=== PATIENT | female | born 1955 | race Caucasian/White ===

== ENCOUNTER → 2023-05-22 08:29 | Outpatient (CLI) | payer MEDICARE, OTHER, SELFPAY ==
--- NOTE | ~2023-05-22 | CT_ITS ---
EXAMINATION: CT abdomen pelvis wo/w con DATE: 05/22/2023 09:25 INDICATION: Renal mass TECHNIQUE: Computed tomography (CT) of the abdomen and pelvis was performed without and with 100 mL O mnipaque-350 intravenous contrast. Automated exposure control and iterative reconstruction technique were employed. The dose-length product was 823.57 mGy-cm. COMPARISON: None FINDINGS: Mild bibasilar atelectasis. Heart size is normal. No pericardial or pleural effusion. Calcified epiph renic lymph node along with multiple splenic and a few hepatic calcifications all consistent with old granulomatous disease. Cholecystectomy clips the gallbladder fossa. Fatty atrophy of the pancreas mo st prominent at the uncinate processes. There are couple subcentimeter low-attenuation lesions at the left kidney, one measuring approximately 5 mm demonstrates macroscopic fat attenuation is preserved on the sagittal and coronal sequences consistent with an angiomyolipoma. The second also measuring ap proximately 5 mm seen on series 5, image 29 is indistinguishable from the surrounding renal parenchym a on the noncontrast imaging. This appears likely hypoenhancing on the post contrast imaging. Specifi city is limited by the small size of the lesion. Right kidney is normal. There is moderate colonic di verticulosis with a sigmoid predominance. There is no adjacent inflammatory change to suggest divert iculitis. No bowel obstruction. No inflammatory stranding surrounding a short appendix versus appendi ceal stump post prior appendectomy. Multiple calcified degenerated uterine fibroids. Bladder is unrem arkable. Bilateral simple appearing adnexal cysts the larger on the right measuring 2.2 cm. No free i ntraperitoneal gas or fluid. No pathologically enlarged abdominal or pelvic lymphadenopathy. Mild to moderate lumbar and lower thoracic spondylosis. IMPRESSION: 1. A couple 5 mm lesions in the upper pole the left kidney, one with macroscopic fat attenuation cons istent with an angiomyolipoma, the second of soft tissue density with suggestion of enhancement raisi ng concern for renal cell carcinoma however specificity is decreased by the small size of the lesion. Correlate with any prior outside imaging and could consider further evaluation with pre and postcont rast MRI. 2. Diverticulosis. Reviewed, dictated and finalized at location [facility]. IMPRESSION: 1. A couple 5 mm lesions in the upper pole the left kidney, one with macroscopi c fat attenuation consistent with an angiomyolipoma, the second of soft tissue density with suggestion of enhancement raising concern for renal cell carcinoma however specificity is decreased by the small size of the lesion. Correlate wi th any prior outside imaging and could consider further evaluation with pre and postcontrast MRI. 2. Diverticulosis.
[2023-05-22 09:10] LABS: Estimated Glomerular Filt Rate > 60
== END ==
PROVIDERS: PCP Urology; Visit Provider Urology
DX: N28.89 Other specified disorders of kidney and ureter (principal); K57.30 Diverticulosis of large intestine without perforation or abscess without bleeding
CPT/HCPCS: 74178; Q9967

== ENCOUNTER 2023-08-11 01:18 | Day surgery (SDC) | payer MEDICARE, OTHER, SELFPAY ==
[2023-07-31 12:44] VITALS: BMI 31.5
[2023-08-11 07:17] VITALS: BP 143/65; PULSE 66; RESP 18; TEMP 36.1; O2SAT 98
--- NOTE | 2023-08-11 07:23 | PM.HPGS ---
History of Present Illness History of Present Illness Consent: Risks, benefits, and alternatives have been discussed and questions answered. Patient agrees to proceed with procedure. Chief complaint: neoplasm screening Narrative: Gerri Souza is a 67 year old female Presents for screening colonoscopy. Patient's current weight appetite and bowel movements are normal. Patient was found to have adenomatous colon polyp at the time of previous colonoscopy in 2018. Patient reports no blood in her stools. She denies abdominal pain. Review of Systems Review of Systems: Review of systems noncontributory. [facility] Past Medical History Medical History (Updated 08/11/23 @ 07:24 by Jorge Richey MD) Anti-TPO antibodies present Anxiety Body mass index (BMI) 23 or greater (02/16/19) Cervical dystonia Diabetes mellitus Dystonia Daniella's thyroiditis Kidney stones Nontoxic multinodular goiter Osteoarthritis Prediabetes Screening for colon cancer Spinal cord neoplasm Surgical History Surgical History History of knee surgery right knee Hx of appendectomy Hx of cholecystectomy Previous back surgery tumor on spine Previous section x2 Family History Family History Mother Family history of cataracts Family history of lung disease Sibling Hypertension Family history of sleep apnea Father Cerebrovascular accident Family history of diabetes mellitus in first degree relative Family history of congestive heart failure Family history of heart disease in male family member before age 55 Social History Social History Smoking status: Never smoker Second hand tobacco smoke exposure: No Alcohol intake: current Alcohol use details: socially Substance use: never Lack of Transportation: No Lack of Food: Never True Current Housing: I Have Housing Concerned About Future Housing: No Difficulty Paying Gas/Electric Bills: No Difficulty Paying for Meds: No Currently Unemployed: No Difficulty w/ Childcare or Family Care: No Living arrangements: with family Occupation/Education: retired Gender identity (if verbalized by the patient): Female Sexual Orientation (if Verbalized by the Patient): Straight or Heterosexual Agree to blood products: Yes Meds Home Medications and Allergies Home Medications Medication Instructions Recorded Confirmed Type ascorbic acid (vitamin C) 500 mg 500 mg PO DAILY 06/25/22 08/11/23 History capsule bifidobacterium bifidum and longum 1 cap PO DAILY 06/25/22 07/31/23 History 460 mg (9-1 billion cell) capsule cetirizine 10 mg tablet (Zyrtec) 10 mg PO DAILY PRN Allergy Symptoms 06/25/22 07/31/23 History cholecalciferol (vitamin D3) 25 25 mcg PO DAILY 06/25/22 07/31/23 History mcg (1,000 unit) tablet magnesium 200 mg tablet 400 mg PO DAILY 06/25/22 07/31/23 History multivitamin 1 tablet PO DAILY 06/25/22 07/31/23 History omega-3 fatty acids-fish oil 300 1 cap PO DAILY 06/25/22 08/11/23 History mg-500 mg capsule (Fish Oil) lancets (Accu-Chek Softclix #100 ea 09/04/22 06/24/23 Rx Lancets) blood sugar diagnostic (Accu-Chek #100 ea 10/24/22 06/24/23 Rx Elsa Plus test strips) metformin 500 mg tablet,extended 1,000 mg PO DAILY #180 tabs 03/24/23 07/31/23 Rx release 24 hr carbidopa 25 mg-levodopa 100 mg See Rx Instructions .Route 03/26/23 07/31/23 Rx tablet .COMPLEX #270 tabs levothyroxine 50 mcg tablet 50 mcg PO DAILY 90 days #90 tabs 06/24/23 07/31/23 Rx clonazepam 2 mg tablet 2 mg PO BID #60 tabs 06/29/23 07/31/23 Rx meloxicam 15 mg tablet See Rx Instructions .Route 07/27/23 07/31/23 Rx .COMPLEX #90 tabs trazodone 50 mg tablet 50 mg PO QHS #90 tabs 08/10/23 08/11/23 Rx Allergies Allergy/AdvReac Type Severity Reaction Status Date / Time ryanlo
[2023-08-11] MEDS: LACTATED RINGERS 1,000 ML 150 ML IV CONT (07:27)
--- NOTE | 2023-08-11 08:02 | WPDANESEPPF ---
Anes - Initial Pre Proc Eval Procedure: Operation Date: 08/11/23 08:30 Proposed Procedures p Screening Colonoscopy - Jorge Richey MD Date/Time: 08/11/23 08:02 Surgeon: Jorge Richey MD Pre Op Diagnosis: neoplasm screening Patient Data Age: 67 Gender: F Height: 1.52 m Weight: 69.9 kg Last Vital Signs Temp 97 F L 08/11/23 07:17 Pulse 66 08/11/23 07:17 Resp 18 08/11/23 07:17 BP 143/65 H 08/11/23 07:17 Pulse Ox 98 08/11/23 07:17 O2 Del Method Room Air 08/11/23 07:17 Allergies Allergy/AdvReac Type Severity Reaction Status Date / Time diclofenac Allergy Unknown Unknown Verified 08/11/23 07:14 hydrocodone Allergy Unknown Rash Verified 08/11/23 07:14 Penicillins Allergy Unknown Unknown Verified 08/11/23 07:14 phenobarbital Allergy Unknown Unknown Verified 08/11/23 07:14 Home Medications Medication Instructions Recorded Confirmed Type ascorbic acid (vitamin C) 500 mg 500 mg PO DAILY 06/25/22 08/11/23 History capsule bifidobacterium bifidum and longum 1 cap PO DAILY 06/25/22 07/31/23 History 460 mg (9-1 billion cell) capsule cetirizine 10 mg tablet (Zyrtec) 10 mg PO DAILY PRN Allergy Symptoms 06/25/22 07/31/23 History cholecalciferol (vitamin D3) 25 25 mcg PO DAILY 06/25/22 07/31/23 History mcg (1,000 unit) tablet magnesium 200 mg tablet 400 mg PO DAILY 06/25/22 07/31/23 History multivitamin 1 tablet PO DAILY 06/25/22 07/31/23 History omega-3 fatty acids-fish oil 300 1 cap PO DAILY 06/25/22 08/11/23 History mg-500 mg capsule (Fish Oil) lancets (Accu-Chek Softclix #100 ea 09/04/22 06/24/23 Rx Lancets) blood sugar diagnostic (Accu-Chek #100 ea 10/24/22 06/24/23 Rx Elsa Plus test strips) metformin 500 mg tablet,extended 1,000 mg PO DAILY #180 tabs 06/06/23 10/13/23 Rx release 24 hr carbidopa 25 mg-levodopa 100 mg See Rx Instructions .Route 03/26/23 07/31/23 Rx tablet .COMPLEX #270 tabs levothyroxine 50 mcg tablet 50 mcg PO DAILY 90 days #90 tabs 06/24/23 07/31/23 Rx clonazepam 2 mg tablet 2 mg PO BID #60 tabs 06/29/23 07/31/23 Rx meloxicam 15 mg tablet See Rx Instructions .Route 07/27/23 07/31/23 Rx .COMPLEX #90 tabs trazodone 50 mg tablet 50 mg PO QHS #90 tabs 08/10/23 08/11/23 Rx Patient hx anesthesia problems: none Family hx anesthesia problems: none Results Review: All pre-operative results and documents have been reviewed as part of the pre-operative evaluation. 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 Previous section x2 Family History Family History Mother Family history of cataracts Family history of lung disease Sibling Hypertension Family history of sleep apnea Father Cerebrovascular accident Family history of diabetes mellitus in first degree relative Family history of congestive heart failure Family history of heart disease in male family member before age 55 Social History Social History Smoking status: Never smoker Second hand tobacco smoke exposure: No Alcohol intake: current Alcohol use details: socially Substance use: never Lack of Transportation: No Lack of Food: Never True Current Housing: I Have Housing Concerned About Future Housing: No Difficulty Paying Gas/Electric Bills: No Difficulty Paying for Meds: No Currently Unemployed: No
[2023-08-11 08:15] LABS: Glucose Point of Care 99 mg/dl (65-105)
[2023-08-11 08:39] VITALS: BP 105/63; PULSE 64; RESP 22; O2SAT 96
[2023-08-11 08:49] VITALS: BP 110/76; PULSE 77; RESP 22; O2SAT 100
[2023-08-11 08:59] VITALS: BP 163/82; PULSE 81; RESP 24; O2SAT 99
== END 2023-08-11 09:06 | disposition home or self-care (01) ==
PROVIDERS: PCP Family Medicine; Visit Provider Internal Medicine Gastroenterology
PROC: 0DJD8ZZ Inspection of Lower Intestinal Tract, Via Natural or Artificial Opening Endoscopic (ICD-10-PCS; CPT 45378; principal; 2023-08-11 08:30)
DX: Z12.11 Encounter for screening for malignant neoplasm of colon (principal); K57.30 Diverticulosis of large intestine without perforation or abscess without bleeding; Z86.010 Personal history of colon polyps; F41.9 Anxiety disorder, unspecified; E11.9 Type 2 diabetes mellitus without complications; E06.3 Autoimmune thyroiditis; E66.9 Obesity, unspecified; Z68.30 Body mass index [BMI] 30.0-30.9, adult; Z79.84 Long term (current) use of oral hypoglycemic drugs; Z86.018 Personal history of other benign neoplasm
CPT/HCPCS: G0105; 82948; J2704; J7120

== ENCOUNTER 2024-01-21 10:20 | Outpatient (CLI) | payer MEDICARE, OTHER, SELFPAY ==
--- NOTE | ~2024-01-21 | MR_ITS ---
MRI of the abdomen: Clinical indication: Renal mass. Technique: Coronal SSFSE ARC, WATER:coronal LAVA-FLEX, Coronal 2D FIESTA FatSat, Axial SSFSE BH ARC, Axial 3D DualEcho BH, Axial SSFSE-IR, Axial DWI b=500, Axial 2D FIESTA FatSat, pre and dynamic postco ntrast Axial LAVA ARC, postcontrast Coronal In and Opposed phase LAVA FLEX . Following intravenous ad ministration of 14 cc MultiHance gadolinium, T1-weighted fat-sat imaging was performed in the axial a nd coronal planes. Findings: Gallbladder unremarkable. The common bile duct is dilated proximally to 10 mm, probably rel ated to prior cholecystectomy. No filling defects are seen within the CBD. No evidence of intrahepati c biliary ductal dilatation. The pancreatic duct is normal in size. Liver, spleen, pancreas, adrenals, kidneys appear normal. The aorta and the paraaortic regions appear normal. No suspicious postcontrast enhancement seen. Impression: No significant renal abnormality identified. Mild dilated common bile duct may related to prior cholecystectomy. Reviewed, dictated and finalized at [facility]. Impression: No significant renal abnormality identified. Mild dilated common bile duct may related to prior cholecystectomy.
== END 2024-01-21 10:21 | disposition home or self-care (01) ==
PROVIDERS: PCP Family Medicine; Visit Provider Urology
DX: N28.89 Other specified disorders of kidney and ureter (principal)
CPT/HCPCS: 74183; A9577

== ENCOUNTER 2025-03-22 11:15 | Outpatient (RCR) | payer MEDICARE, OTHER, SELFPAY ==
--- NOTE | 2025-01-24 16:04 | PTOPEVAL1 ---
Assessment and note entered by Kallie Ruth, PT Evaluation Information Assessment Status Evaluation Diagnosis right sided sciatica ICD-10 Condition Codes (PT) Pain in low back M54.50,Weakness R53.1 Other ICD-10 Condition Codes ( M74.604 Pain in right leg PT) Subjective Information Has been dealing with this about a year overall. Was at Chiropractor April to July and he used the activator. She was pleased with this services. Was doing pretty good keeping moving. Feels like doesn't have enough to keep her moving. Was better but wasn't totally gone by the end of that. States every once in a while will have pelvic pain. notes she would be out of alignment every couple of days. First thing in the morning, with dressing, and with bathing increases pain Water aerobics 3x weekly and stays active. Notices now when she goes to class and starting the exercises she has pain right gluteal and leg but by the end of session is feeling better. Reported Pain Level Pain Score 3: Self Report Assessment PT Clinical Summary Pt presents with right sided sciatica symptoms that have persisted approximately one year. she was seeing a Chiropractor between April and July and felt did well with this though the issue was never fully resolved. She also has a history of right knee meniscectomy which left her lacking full extension, has arthritis in joey knees and low back. Today she demonstrates (+) neural tension RLE, decreased flexibility RLE hip and quads, significant gluteal weakness joey, pelvic upslip which partially corrected with muscle energy technique. Appears these are effecting her piriformis muscle tone and causing pressure on the sciatic nerve with discomfort. Pt will benefit from physical therapy in order to address deficits , reduce pain, and educate patient on independent maintenance for half-way outcomes. Plan of Care Interventions Electrical Stimulation,Hot Pack/Cold Pack,Manual Therapy,Mechanical Traction,Neuro Re-education, Patient/Caregiver Education,Therapeutic Activities ,Therapeutic Exercise,Self-Care/Home Management, Ultrasound,Other Other Interventions Taping, bracing, IASTM PT Services Indicated Yes Treatment Frequency and 2x weekly x 16 weeks Duration These treatments will address the objective and functional deficits as defined above. The patient will be advanced safely and appropriately in order for the patient to progress towards his/her prior level of function. Additional exercises will be introduced and as well as a comprehensive home exercise program upon discharge, if needed, ?to ensure carryover of functional gains achieved in the clinic. This treatment plan has been reviewed and agreement upon by the patient.
--- NOTE | 2025-01-24 16:04 | OPREHPOC ---
Outpatient Therapy Plan of Care This is a Multidisciplinary Plan of Care that may contain components documented by all disciplines (PT, OT, and ST.) PT Problem 1 PT Problem #1 Knowledge Deficit PT Goal 1 Goal / Goal Update Pt will be independent in HEP Pt will verbalize understanding of diagnosis and prognosis Target Visit 8 PT Problem 2 PT Problem #2 Pain PT Goal 1 Goal / Goal Update Pt will report greatest pain level at 5/10 or less to improve ADLs and activities PT Goal 2 Goal / Goal Update Pt will report greatest pain level at 2/10 or less to improve ADLs and activities PT Problem 3 PT Problem #3 Impaired Strength PT Goal 1 Goal / Goal Update Pt will demonstrate BLE strength of 3+/5 in all tested planes for improved lumpbopelvic stability Target Visit 8 PT Goal 2 Goal / Goal Update Pt will demonstrate BLE strength of 4/5 in all tested planes for improved lumpbopelvic stability Target Visit 16 PT Problem 4 PT Problem #4 Impaired Flexibility PT Goal 1 Goal / Goal Update Pt will demonstrates mild piriformis flexibility deficit Target Visit 8
--- NOTE | 2025-02-20 16:53 | PTOPPROG ---
Assessment and note entered by Kallie Ruth, PT Evaluation Information Assessment Status Progress Diagnosis right sided sciatica ICD-10 Condition Codes (PT) Pain in low back M54.50,Weakness R53.1 Other ICD-10 Condition Codes ( M74.604 Pain in right leg PT) Subjective Information Reports has to sit to put on socks in the morning, stairs are still painful. showering is still painful Reports this morning had pain across the pelvis. Thursday was terrible, Thursday was good but didn' t ride the bike Sat or Thursday. Reports still has pain into right calf. Pt reports feeling maybe a little progress overall. Pt reports sometimes has achiness and not the sharp and intense as previously. Pt reports less instances of sharp pains but still has the achiness, less 10/10 moments Assessment PT Clinical Summary Gerri has attended therapy consistently 8 visits and is here for reevaluation. She is a highly active individual participating in recreational fitness consistently and caring for her granddaughter. Unfortunately she has made minimal progress with direction PT has been focused. She does show mild improvements in ROM, flexibility, and strength but nothing significant. Her pelvic alignment is also improved overall however has not had significant effect on her discomfort. Today we shifted to lumbar traction in hopes if there is discogenic or nerve impingement in the lumbar spine this will show improvement. Shifting focus to lumbar ROM, and continued strengthening with less focus on soft tissue management, pt may benefit from continued therapy to reduce discomfort. If new POC shows minimal or no improvement, pt may benefit from further imaging to assess possible reasonings for pain. Plan of Care Interventions Electrical Stimulation,Hot Pack/Cold Pack,Manual Therapy,Mechanical Traction,Neuro Re-education, Patient/Caregiver Education,Therapeutic Activities ,Therapeutic Exercise,Self-Care/Home Management, Ultrasound,Other Other Interventions Taping, bracing, IASTM PT Services Indicated Yes Treatment Frequency and 1-2x weekly x8 visits Duration These treatments will address the objective and functional deficits as defined above. The patient will be advanced safely and appropriately in order for the patient to progress towards his/her prior level of function. Additional exercises will be introduced and as well as a comprehensive home exercise program upon discharge, if needed, ?to ensure carryover of functional gains achieved in the clinic. This treatment plan has been reviewed and agreement upon by the patient.
--- NOTE | 2025-02-20 16:53 | OPREHPOC ---
Outpatient Therapy Plan of Care This is a Multidisciplinary Plan of Care that may contain components documented by all disciplines (PT, OT, and ST.) PT Problem 1 PT Problem #1 Knowledge Deficit PT Goal 1 Goal / Goal Update Pt will be independent in HEP - pt has had to modify HEP multiple times with therapist due to discomfort Pt will verbalize understanding of diagnosis and prognosis Target Visit 8 Progress Partially Met PT Problem 2 PT Problem #2 Pain PT Goal 1 Goal / Goal Update Pt will report greatest pain level at 5/10 or less to improve ADLs and activities - reports less instances of the 10/10 pain though continues to have high levels of pain at times Progress Not Met PT Goal 2 Goal / Goal Update Pt will report greatest pain level at 2/10 or less to improve ADLs and activities PT Problem 3 PT Problem #3 Impaired Strength PT Goal 1 Goal / Goal Update Pt will demonstrate BLE strength of 3+/5 in all tested planes for improved lumpbopelvic stability Target Visit 8 Progress Met PT Goal 2 Goal / Goal Update Pt will demonstrate BLE strength of 4/5 in all tested planes for improved lumpbopelvic stability Target Visit 16 PT Problem 4 PT Problem #4 Impaired Flexibility PT Goal 1 Goal / Goal Update Pt will demonstrates mild piriformis flexibility deficit Target Visit 8 Progress Not Met
--- NOTE | 2025-03-22 11:44 | PTOPDC ---
Assessment and note entered by Kallie Ruth, PT Evaluation Information Assessment Status Discharge Diagnosis right sided sciatica ICD-10 Condition Codes (PT) Pain in low back M54.50,Weakness R53.1 Other ICD-10 Condition Codes ( M74.604 Pain in right leg PT) Subjective Information Pt states getting dressed is still painful and not going well. Will do her exercises and then go get dressed and is still hard. Has tried modifying by dressing with support and was unable to do this without. Pt also feels is worse now with putting shows on. Cont to have sore pain mostly and less 10/10 moments but certain situations continues to have those moments consistently such as showering and dressing. cont to have pain in to the calf. Reports now is having pain when sleeping when she didn't previously. Reported Pain Level Pain Score 8,8: Self Report Assessment PT Clinical Summary Pt has attended therapy consistently for her back and RLE pain. She has followed instructions to the best of her ability, communicated with therapist regarding necessary modifications for compliance and improvement of symptoms, and has given full effort in therapy. Throughout her POC course, her symptoms have been variable, at times having very minimal pain and others pain being much higher without discernable pattern. We have attempted to address ROM both lumbar and hips, strength of lumbopelvic musculature, deep tissue adhesions and soft tissue health, among other avenues of treatments. Overall she has made minimal ROM and strength progress, and minimal improvements in pain and ADLs. Pt appears to have met maximal benefit for therapy at this time and is thus being discharged. Pt would benefit from referral to specialist and further imaging to assess cause of pain and difficulty. Plan of Care PT Services Indicated No
== END 2025-03-28 15:01 | disposition home or self-care (01) ==
LOC: ANHHIPT 11:15
PROVIDERS: PCP Physician Assistant Medical; Visit Provider Physician Assistant Medical
DX: M54.31 Sciatica, right side (principal)
CPT/HCPCS: 97012; 97014; 97035; 97110; 97112; 97140; 97162; 97530; 97750; G0283

== ENCOUNTER 2025-04-19 06:45 | Outpatient (CLI) | payer MEDICARE, OTHER, SELFPAY ==
--- NOTE | ~2025-04-19 | MR_ITS ---
MRI of the lumbar spine Clinical History: Right sciatica Technique: Axial T2-weighted images, and sagittal T1-weighted, T2-weighted, and T2 fat-sat images wer e acquired. Findings: There is no fracture or subluxation of the lumbar spine. Vertebral bodies maintain normal h eight and line. Bone marrow signals are unremarkable. At L1-L2, there is no disc bulge or herniation. There is mild facet hypertrophy. No spinal canal sten osis or neural foraminal narrowing. At L2-L3, there is mild degenerative disc narrowing. There is mild disc bulge with moderate to advanc ed facet arthropathy. No central canal stenosis. There is moderate bilateral neural foraminal narrowi ng. At L3-L4, there is no significant disc bulge or herniation. There is moderate facet hypertrophy. No s dk canal stenosis or definite neural foraminal narrowing. At L4-L5, there is diffuse disc bulge with severe facet arthropathy. There is 8mm right-sided synovia l cyst. There is severe spinal canal stenosis/thecal sac compression. There is severe left neural for aminal compromise, and moderate right neural foraminal compromise. At L5-S1, there is minimal disc bulge with severe facet arthropathy. No central canal stenosis or def inite neural foraminal narrowing. Paravertebral soft tissues are unremarkable. Impression: Severe degenerative spondylosis at L4-L5, as detailed above, including 8 mm right-sided synovial cyst . Additional mild to moderate degenerative changes, as above. Reviewed, dictated and finalized at [facility]. Impression: Severe degenerative spondylosis at L4-L5, as detailed above, including 8 mm rig ht-sided synovial cyst. Additional mild to moderate degenerative changes, as above.
== END 2025-04-19 06:46 | disposition home or self-care (01) ==
LOC: MICIMG 06:46
PROVIDERS: PCP Physician Assistant Medical; Visit Provider Physician Assistant Medical
DX: M54.31 Sciatica, right side (principal); M47.896 Other spondylosis, lumbar region; M71.38 Other bursal cyst, other site
CPT/HCPCS: 72148